=== PATIENT | male | born 1965 | race Caucasian/White ===

== ENCOUNTER 2022-09-14 22:04 | Inpatient (IN) | payer MEDICARE, MEDICAID, SELFPAY ==
[2022-09-14 22:11] VITALS: BP 108/75; PULSE 93; RESP 16; TEMP 36.7; O2SAT 100; BMI 26.3
--- NOTE | 2022-09-14 22:57 | CT_ITS ---
The [address] [address] Patient Name: AMPARO KHAN MRN: [id number] date: 1965 Sex: M Assigned Patient Location: ER Current Patient Location: Accession/Order Number: [id number] Exam Date: 09/14/2022 23:20 Report Date: 09/14/2022 23:59 At the request of: KARTHIK CARMEN Procedure: CT lumbar spine wo con EXAM: CT lumbar spine wo con HISTORY: The patient is a 57-year-old male, fall COMPARISON: None. TECHNIQUE: CT images were obtained through the lumbar spine without intravenous contrast and reformatted in 2 dimensions. Dose reduction techniques were achieved by using automated exposure control and/or adjustment of mA and/or kV according to patient size and/or use of iterative reconstruction technique. FINDINGS: The axial images demonstrate no fractures or cortical discontinuities throughout the lumbar spine. The sacroiliac joints are maintained. The coronal and sagittal reformatted images demonstrate no fractures or loss of vertebral body height throughout the lumbar spine. There is no malalignment. There is a chronic appearing Schmorl's node within the superior endplate of T12 and a smaller Schmorl's node within the superior endplate of L1. There is moderate narrowing of the L3-L4 and L4-L5 discs. The soft tissue images demonstrate evidence of a disc herniation at the L3-L4 level. If clinically necessary, the degree of central canal stenosis and neural foraminal narrowing could be better evaluated with an MRI of the lumbar spine. CT/CT lumbar spine wo con IMPRESSION: 1. No fractures or loss of vertebral body height throughout the lumbar spine. 2. Disc herniation at the L3-L4 level. Electronically authenticated by: JEMAL RUIZ Date: 09/14/2022 23:59
[2022-09-14 22:58] LABS: Basophils Percent Auto 0.2 % (0.2-2.0); Hemoglobin 12.8 g/dL (14.0-18.0); Immature Granulocytes Abs Auto 0.02 10^3/uL (0.00-0.03); Immature Granulocytes Pct Auto 0.4 % (0.0-0.5); Lymphocytes Absolute Auto 0.7 10^3/uL (1.2-3.8); Lymphocytes Percent Auto 12.8 % (20.5-60.0); Mean Corpuscular HGB Conc 35.6 g/dL (29.9-35.2); Mean Corpuscular Hemoglobin 35.4 pg (25.9-34.0); Mean Corpuscular Volume 99.4 fL (80.0-94.0); Mean Platelet Volume 9.6 fL (9.5-13.5); Monocytes Absolute Auto 0.6 10^3/uL (0.3-0.8); Neutrophils Absolute Auto 4.3 10^3/uL (1.4-6.5); Neutrophils Percent Auto 75.6 % (43.0-75.0); Platelet Count 79 10^3/uL (150-450); Red Blood Count 3.62 10^6/uL (4.70-6.10); Red Cell Distribution Width 12.5 % (11.0-15.0); White Blood Count 5.6 10^3/uL (4.0-11.0)
[2022-09-14 23:07] LABS: Alanine Aminotransferase 35 U/L (16-63); Albumin Globulin Ratio 0.7; Albumin Level 3.4 g/dL (3.4-5.0); Alkaline Phosphatase 115 U/L (46-116); Anion Gap 25.5; Aspartate Amino Transferase 58 U/L (15-37); BUN Creatinine Ratio 11.8; Bilirubin Total 0.9 mg/dL (0.2-1.0); Calcium 8.7 mg/dL (8.5-10.1); Carbon Dioxide 17.8 mmol/L (21.0-32.0); Chloride 92 mmol/L (98-107); Estimated GFR (African America >60 (>=60); Estimated GFR (Non-African Ame >60 (>=60); Ethanol 175 mg/dL; Globulin 4.9 g/dL; Glucose 297 mg/dL (74-106); Magnesium 1.2 mg/dL (1.8-2.4); Potassium 3.3 mmol/L (3.5-5.1); Sodium 132 mmol/L (136-145); Total Protein 8.3 g/dL (6.4-8.2)
[2022-09-14 23:18] LABS: Phosphorus 2.9 mg/dL (2.6-4.7)
[2022-09-15] VITALS (13 sets, daily range): BP systolic 114–162; BP diastolic 70–94; PULSE 76–104; RESP 16–18; TEMP 36.4–38.7; O2SAT 83–98; BMI 37.9
--- NOTE | 2022-09-15 | XR_ITS ---
[address] [address] Patient Name: AMPARO KHAN MRN: [id number] date: 1965 Sex: M Assigned Patient Location: ER Current Patient Location: ER Accession/Order Number: [id number] Exam Date: 09/15/2022 08:20 Report Date: 09/15/2022 09:00 At the request of: KARTHIK CARMEN Procedure: XR foreign body eye EXAMINATION: XR foreign body eye HISTORY: HISTORY OF METAL GRINDING COMPARISON: No relevant comparison available. FINDINGS: ORBITS: Negative for a metallic foreign body. OTHER: Negative. XR/XR foreign body eye IMPRESSION: No metallic foreign body in the orbits Electronically authenticated by: ALETHA CLEMENT Date: 09/15/2022 09:00
[2022-09-15] MEDS: POTASSIUM CHLORIDE 10 MEQ ER TABLET 20 MEQ PO (00:07)
[2022-09-15] MEDS: 0.9 % SODIUM CHLORIDE 1,000 ML 1000 ML IV ×2 (00:08→11:40)
--- NOTE | 2022-09-15 00:58 | ED_ITS ---
HPI - General Adult General Chief complaint: Weakness Stated complaint: GENERALIZED WEAKNESS Time Seen by Provider: 09/14/22 22:51 Source: patient Mode of arrival: ambulance History of Present Illness HPI narrative: The patient is coming to us with generalized weakness when referring to his symptoms he mentioned that the weakness has been there for few weeks at least, he usually goes to [facility] but today he decided to come over here because people here are not to him, the patient mentioned that he had multiple work-up for his weakness but they usually do not do anything for it He also mentioned that he has been incontinence of urine for the last few weeks at least and usually wears depends. He mentioned that his at least a few weeks it could have been more than that according to him The patient have history of drinking and he was brought to us after the EMS found him drinking alcohol with a bottle of alcohol beside him The patient usually walks with his walker and according to him although he does have weakness this is not a new complaint he had told his primary care doctor multiple times he also presented to the ER in [place] multiple times for the same reason Related Data Allergies Allergy/AdvReac Type Severity Reaction Status Date / Time No Known Drug Allergies Allergy Verified 09/14/22 22:11 Review of Systems ROS Narrative Nurses notes and vital signs reviewed and patient is not hypoxic. General: Well-appearing and in no apparent distress. Skin: Warm, dry, no pallor noted. No rash. Head: Normocephalic, atraumatic. Neck: Supple, non-tender. Eye: Pupils are equal, round and EOMI. No scleral icterus. Ears, Nose, Mouth, and Throat: TM are clear, no nasal mucosal hypertrophy. Oral mucosa is moist, no posterior oropharynx erythema, uvula is mid-line Cardiovascular: Regular Rate and Rhythm without murmur, gallop or rub. Respiratory: No accessory muscle use or respiratory distress. Lungs are clear to auscultation, no wheezing, rales or rhonchi Chest Wall: no tenderness Back: No midline thoracic or lumbar vertebral tenderness. No CVA tenderness Musculoskeletal: normal ROM, no calf or popliteal tenderness, no lower extremity edema/swelling GI: Abdomen is soft, non-distended. Normal bowel sounds. No masses appreciated. No tenderness to palpation. No rebound, guarding, or rigidity noted. Neurological: A&O x4. No cranial nerve dysfunction observed. Moves all extremities. Sensation intact. Psychiatric: Cooperative and interactive. Normal mood and affect. Exam Constitutional Vital Signs, click to edit/add: Last Vital Signs Temp 98.0 F 09/14/22 22:11 Pulse 85 09/15/22 06:12 Resp 18 09/15/22 02:17 BP 117/83 H 09/15/22 06:12 Pulse Ox 94 L 09/15/22 06:12 O2 Del Method Room Air 09/14/22 22:11 Course Vital Signs Vital signs: Vital Signs Temperature 98.0 F 09/14/22 22:11 Pulse Rate 93 H 09/14/22 22:11 Respiratory Rate 16 09/14/22 22:11 Blood Pressure 108/75 09/14/22 22:11 Pulse Oximetry 100 09/14/22 22:11 Oxygen Delivery Method Room Air 09/14/22 22:11 Temperature 98.0 F 09/14/22 22:11 Pulse Rate 85 09/15/22 06:12 Respiratory Rate 18 09/15/22 02:17 Blood Pressure 117/83 H 09/15/22 06:12 Pulse Oximetry 94 L 09/15/22 06:12 Oxygen Delivery Method Room Air 09/14/22 22:11 Medical Decision Making MDM Narrative Medical decision making narrative: The patient examination was basically benign except for him complaining that he fell down yesterday and has been having chronic pain in his back. The patient mentioned that he was weak and that is why he fell down, pt was found to have a bottle of alcohol beside him when the EMS arrived to get him The patient alcohol level was elevated his potassium was low as well as magnesium his blood work-up shows metabolic acidosis which is mostly secondary to the elevated alcohol level The patient was hydrated in the ER with p.o. as well as IV fluid and he also was treated with magnesium and p.o. 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 The patient was offered to be transferred to another facility for neurological evaluation but requested to go home, he did mention that his symptoms are not new and they have been there for few weeks I did explain to the patient as well that he have urine retension as his bladder scan showed more than 700 cc of urine,but the pt mentioned he will just and he just actually urinated in his depends pt symptoms all been chronic and he initialy refused the transfer for MRI lumbar when he was awaiting to be more sober, he still was showing generalised weakness , the patient lives by himself he has not been able to manage to take care of himself as well although he have been ambulating with a walker but right now the plan is to get an MRI to rule out any lumbar spine pathology that could be causing the patient's symptoms The patient case was discussed with Dr. Muniz , and the will await the results of the MRI before any decision about admission pt care transferred to Dr Jules Lab Data Labs: Lab Results 09/14/22 Range/Units 22:35 WBC 5.6 (4.0-11.0) 10^3/uL RBC 3.62 L (4.70-6.10) 10^6/uL Hgb 12.8 L (14.0-18.0) g/dL Hct 36.0 L (42.0-54.0) % MCV 99.4 H (80.0-94.0) fL MCH 35.4 H (25.9-34.0) pg MCHC 35.6 H (29.9-35.2) g/dL RDW 12.5 (11.0-15.0) % Plt Count 79 L (150-450) 10^3/uL MPV 9.6 (9.5-13.5) fL Neut % (Auto) 75.6 H (43.0-75.0) % Lymph % (Auto) 12.8 L (20.5-60.0) % Iron % (Auto) 11.0 (1.7-12.0) % Eos % (Auto) 0.0 L (0.9-7.0) % Baso % (Auto) 0.2 (0.2-2.0) % Neut # (Auto) 4.3 (1.4-6.5) 10^3/uL Lymph # (Auto) 0.7 L (1.2-3.8) 10^3/uL Iron # (Auto) 0.6 (0.3-0.8) 10^3/uL Eos # (Auto) 0.0 (0.0-0.7) 10^3/uL Baso # (Auto) 0.0 (0.0-0.1) 10^3/uL Abs Immat Gran (auto) 0.02 (0.00-0.03) 10^3/uL Imm/Tot Granulo (auto) 0.4 (0.0-0.5) % Sodium 132 L (136-145) mmol/L Potassium 3.3 L (3.5-5.1) mmol/L Chloride 92 L (98-107) mmol/L Carbon Dioxide 17.8 L (21.0-32.0) mmol/L Anion Gap 25.5 BUN 14.0 (7.0-18.0) mg/dL Creatinine 1.19 (0.70-1.30) mg/dL Est GFR ( Amer) >60 (>=60) Est GFR (Non-Af Amer) >60 (>=60) BUN/Creatinine Ratio 11.8 Glucose 297 H (74-106) mg/dL Calcium 8.7 (8.5-10.1) mg/dL Phosphorus 2.9 (2.6-4.7) mg/dL Magnesium 1.2 L (1.8-2.4) mg/dL Total Bilirubin 0.9 (0.2-1.0) mg/dL AST 58 H (15-37) U/L ALT 35 (16-63) U/L Alkaline Phosphatase 115 (46-116) U/L Total Protein 8.3 H (6.4-8.2) g/dL Albumin 3.4 (3.4-5.0) g/dL Globulin 4.9 g/dL Albumin/Globulin Ratio 0.7 Ethanol Quant 175 mg/dL Discharge Plan Discharge Chief Complaint: Weakness Clinical Impression: Alcohol abuse, Acute hypokalemia, Hypomagnesemia Patient Disposition: Home, Self-Care Time of Disposition Decision: 05:20 Condition: Good Instructions: Hypokalemia (ED), Abuse of Alcohol (ED), Hypomagnesemia (ED) Stand Alone Forms: Portal Instructions Referrals: Physician,Non-Staff, MD [Primary Care Provider] - 1 week
[2022-09-15] MEDS: KETOROLAC TROMETHAMINE 30 MG/ML VIAL 15 MG IVP (05:45)
--- NOTE | 2022-09-15 06:01 | MR_ITS ---
The [address] [address] Patient Name: AMPARO KHAN MRN: [id number] date: 1965 Sex: M Assigned Patient Location: ER Current Patient Location: ER Accession/Order Number: [id number] Exam Date: 09/15/2022 08:36 Report Date: 09/15/2022 10:43 At the request of: KARTHIK CARMEN Procedure: MR lumbar spine wo con EXAMINATION: MR lumbar spine wo con HISTORY: back pain and weakness COMPARISON: No relevant comparison available. TECHNIQUE: A variety of imaging planes and parameters were utilized for visualization of suspected pathology. FINDINGS: For the purposes of numbering, sagittal T2 image # 7 extends from the T11 vertebral body superiorly to the S2-S3 level inferiorly. PARASPINAL AREA: Normal with no visible mass. BONES: Normal alignment with no acute fracture or spondylolisthesis. Mild heterogeneous signal likely age-related change. Moderate anterior degenerative spondylosis. Mild facet osteoarthropathy. CORD/CAUDA EQUINA: Normal caliber, contour, and signal intensity. DISC LEVELS: 12-L1: No significant disc/facet abnormality, spinal stenosis, or foraminal stenosis. L1-L2: No significant disc/facet abnormality, spinal stenosis, or foraminal stenosis. L2-L3: No significant disc/facet abnormality, spinal stenosis, or foraminal stenosis. L3-L4: Mild posterior disc protrusion. No central or foraminal stenosis L4-L5: Mild posterior disc/osteophyte complex. No central or foraminal stenosis L5-S1: Early degenerative disc disease is present without focal protrusion or neural impingement. MR/MR lumbar spine wo con IMPRESSION: Mild degenerative discogenic changes No central or foraminal stenosis Electronically authenticated by: ALETHA CLEMENT Date: 09/15/2022 10:43
[2022-09-15 08:07] LABS: Hematocrit 30.7 % (42.0-54.0); Hemoglobin 11.2 g/dL (14.0-18.0); Immature Granulocytes Abs Auto 0.02 10^3/uL (0.00-0.03); Immature Granulocytes Pct Auto 0.5 % (0.0-0.5); Lymphocytes Absolute Auto 0.5 10^3/uL (1.2-3.8); Lymphocytes Percent Auto 11.8 % (20.5-60.0); Mean Corpuscular HGB Conc 36.5 g/dL (29.9-35.2); Mean Corpuscular Hemoglobin 35.4 pg (25.9-34.0); Mean Corpuscular Volume 97.2 fL (80.0-94.0); Mean Platelet Volume 9.7 fL (9.5-13.5); Monocytes Absolute Auto 0.6 10^3/uL (0.3-0.8); Monocytes Percent Auto 15.6 % (1.7-12.0); Neutrophils Absolute Auto 2.9 10^3/uL (1.4-6.5); Neutrophils Percent Auto 72.1 % (43.0-75.0); Platelet Count 58 10^3/uL (150-450); Red Blood Count 3.16 10^6/uL (4.70-6.10); Red Cell Distribution Width 12.3 % (11.0-15.0)
[2022-09-15 08:18] LABS: Alanine Aminotransferase 29 U/L (16-63); Albumin Globulin Ratio 0.6; Albumin Level 2.9 g/dL (3.4-5.0); Alkaline Phosphatase 101 U/L (46-116); Anion Gap 26.3; Aspartate Amino Transferase 49 U/L (15-37); BUN Creatinine Ratio 12.8; Bilirubin Total 1.3 mg/dL (0.2-1.0); Calcium 8.1 mg/dL (8.5-10.1); Carbon Dioxide 14.4 mmol/L (21.0-32.0); Chloride 91 mmol/L (98-107); Estimated GFR (African America >60 (>=60); Estimated GFR (Non-African Ame >60 (>=60); Ethanol <3 mg/dL; Globulin 4.6 g/dL; Glucose 308 mg/dL (74-106); Potassium 3.7 mmol/L (3.5-5.1); Sodium 128 mmol/L (136-145); Total Protein 7.5 g/dL (6.4-8.2)
[2022-09-15] MEDS: MULTIVITAMIN TABLET 400 TAB PO (13:40)
[2022-09-15] MEDS: LORAZEPAM 1 MG TABLET PO ×2 (13:40→21:48)
[2022-09-15] MEDS: THIAMINE MONONITRATE (VIT B1) 100 MG TABLET PO (13:40)
[2022-09-15] MEDS: FOLIC ACID 1 MG TABLET PO (13:40)
[2022-09-15] MEDS: 0.9 % SODIUM CHLORIDE 1,000 ML 100 ML IV ×2 (13:40→22:48)
[2022-09-15] MEDS: ENOXAPARIN SODIUM 40 MG/0.4 ML SYRINGE SUBQ (14:42)
--- NOTE | 2022-09-15 15:14 | US_ITS ---
The [address] [address] Patient Name: AMPARO KHAN MRN: [id number] date: 1965 Sex: M Assigned Patient Location: MS Current Patient Location: MS Accession/Order Number: [id number] Exam Date: 09/15/2022 15:20 Report Date: 09/15/2022 17:01 At the request of: BARRY DIXON Procedure: US right upper quadrant EXAM: US right upper quadrant HISTORY: elevated lft's, alcoholic COMPARISON: None. TECHNIQUE: Limited ultrasound of the liver, utilizing grayscale and color Doppler imaging. FINDINGS: Right pleural space: Clear Liver: Diffusely increased echogenicity of the liver. Hepatomegaly, measuring 22 cm. Normal contour. Gallbladder: Not visualized. Intrahepatic ducts: Normal caliber. Extra hepatic duct measures up to 0.5 cm Peritoneal space: No ascites. Pancreas: Unremarkable. Distal pancreas cannot be evaluated due to overlying bowel gas. Right kidney: Normal cortical echogenicity. No hydronephrosis. The right kidney measures 12.9 cm in length. US/US right upper quadrant IMPRESSION: Hepatomegaly and hepatic steatosis. No biliary ductal dilatation. Gallbladder is not visualized. Electronically authenticated by: JOSE LUIS SANTORO Date: 09/15/2022 17:01
[2022-09-15] MEDS: ACETAMINOPHEN 325 MG TABLET PO (15:22)
[2022-09-15] MEDS: PANTOPRAZOLE SODIUM 40 MG VIAL IV (15:22)
[2022-09-15 15:54] LABS: Glucometer 355 mg/dL (74-106)
[2022-09-15 16:00] LABS: Adenovirus NOT DETECTED (NOT DETECTE); Bordetella parapertussis NOT DETECTED (NOT DETECTE); Coronavirus 229E NOT DETECTED (NOT DETECTE); Coronavirus HKU1 NOT DETECTED (NOT DETECTE); Coronavirus NL63 NOT DETECTED (NOT DETECTE); Coronavirus OC43 NOT DETECTED (NOT DETECTE); Human Metapneumovirus NOT DETECTED (NOT DETECTE); Human Rhinovirus/Enterovirus NOT DETECTED (NOT DETECTE); Influenza A NOT DETECTED (NOT DETECTE); Influenza B NOT DETECTED (NOT DETECTE); Mycoplasma pneumoniae NOT DETECTED (NOT DETECTE); Parainfluenza Virus 1 NOT DETECTED (NOT DETECTE); Parainfluenza Virus 2 NOT DETECTED (NOT DETECTE); Parainfluenza Virus 3 NOT DETECTED (NOT DETECTE); Parainfluenza Virus 4 NOT DETECTED (NOT DETECTE); Respiratory Syncytial Virus NOT DETECTED (NOT DETECTE); SARS-CoV-2 NOT DETECTED (NOT DETECTE)
[2022-09-15] MEDS: INSULIN ASPART 300 UNIT/3 ML PEN SUBQ ×2 (16:01→21:48)
[2022-09-15 16:23] LABS: Lactate/Lactic Acid 1.3 mmol/L (0.4-2.0)
--- NOTE | 2022-09-15 17:35 | P.HP_ITS ---
H&P: HPI History of Present Illness Chief complaint: GENERALIZED WEAKNESS Narrative: patient is a 57-year-old male with past medical history of alcoholism he drinks approximately 1 gallon of whiskey every 2-3 days. He presented to the Emergency Room after calling EMS because he had general weakness and his bilateral lower extremities and inhibited him to walk. Original workup was a CT of the back which then proceeded to an MRI of the back which showed some degenerative changes and some disc disease but no cauda equina or any surgical emergency. Patient has tried to stop drinking before and has had seizure withdrawals before. He does not anticipate or want to quit alcohol at this time but he is very weak so he is forced to be in the hospital. He does live at home alone and otherwise is able to continue on with his quality of life. Today he developed a fever and sepsis current protocol was initiated including viral cultures, lactate, urine and blood cultures. Patient was admitted because of the weakness for PTOT evaluation and we will do scheduled Ativan as well as withdrawal precautions Review of Systems ROS Narrative ROS: a complete review of systems were reviewed with patient and are positive as below or listed in History of Chief Complaint. General: no fever, chills, night sweats Head: no headache, trauma, visual changes, nausea or vomiting Skin: no reported rashes, itching or sores Eyes: no blurriness of vision Ears: no reported hearing loss, vertigo, earache, or tinnitus Throat: no sore throat, hoarseness, swelling of neck, or tongue pain Heart: no chest pain Lungs: no shortness of breath or cough GI: no diarrhea or vomiting/nausea Urinary: no urinary urgency, frequency or pain Neuro: no numbness or tingling but weakness in legs with back pain HEM: no bleeding issues or bruising ENDO: no thyroid problems Psych: no anxiety or depression PFSH PFS Medical History Social History Within the past year, how often did you have a drink containing alcohol: 4 or more times a week Within the past year, how many standard drinks containing alcohol did you have on a typical day: 10 or more Within the past year, how often did you have six or more drinks on one occasion: daily or almost daily Total score: 12 Score interpretation: A score of 4 or more indicates drinking is likely to affect patient's safety. Smoking status: Heavy tobacco smoker Non-prescribed substance use: denies use Highest level of school completed/degree received: high school graduate Little interest or pleasure in doing things: more than half the days Feeling down, depressed, or hopeless: not at all Feel stressed/tense/nervous/anxious/difficulty sleeping: only a little Meds Home Medications and Allergies Home Medications Medication Instructions Recorded Confirmed Type ibuprofen 800 mg tablet (IBU) 800 mg PO Q6H 09/15/22 09/15/22 History insulin glargine subcut 09/15/22 History insulin lispro protamin-lispro subcut 09/15/22 History levothyroxine 150 mcg tablet 150 mcg PO DAILY 09/15/22 09/15/22 History (Euthyrox) metformin 500 mg tablet 500 mg PO BID 09/15/22 09/15/22 History pantoprazole 40 mg tablet,delayed 40 mg PO DAILY 09/15/22 09/15/22 History release pregabalin 150 mg capsule (Lyrica) 150 mg PO BID 09/15/22 09/15/22 History ropinirole 3 mg tablet 3 mg PO TID 09/15/22 09/15/22 History spironolactone 25 mg tablet 25 mg PO DAILY 09/15/22 09/15/22 History Allergies Allergy/AdvReac Type Severity Reaction Status Date / Time No Known Drug Allergies Allergy Verified 09/14/22 22:11 Exam Narrative Exam Narrative: General: Patient is alert, and oriented to person, place and time with normal affect, proper hygiene Skin: no visible rashes, or ulcers Head: atraumatic, acephalic Eyes: PERRLA, no nystagmus present, conjunctiva clear, no scleral icterus Neck: no masses palpated, normal thyroid, no JVD or audible carotid bruits Heart: Normal rate and rhythm, no murmurs/rubs/gallops Lungs: no audible wheezes, crackles and normal breath sounds all lung galindo Abdomen: Normal audible bowel sounds, no distension, enlarged liver Musculoskeletal: no swelling bilateral lower extremities, weakness noted 4/5 in bilateral lower ext Vascular: Normal carotid, radial, femoral, posterior tibial, and dorsalis pedis pulses Lymph: no supraclavicular, axillary, or anterior/posterior cervical adenopathy Neuro: CN II-X grossly intact, normal sensation upper and lower extremities Constitutional Vital Signs, click to edit/add: Last Vital Signs Temp 98.4 F 09/15/22 17:01 Pulse 94 H 09/15/22 17:01 Resp 16 09/15/22 17:01 BP 162/94 H 09/15/22 12:12 Pulse Ox 96 09/15/22 15:15 O2 Del Method Room Air 09/15/22 15:15 Results Labs Labs: Short CBC 09/14/22 09/15/22 Range/Units 22:35 07:55 WBC 5.6 4.0 (4.0-11.0) 10^3/uL Hgb 12.8 L 11.2 L (14.0-18.0) g/dL Hct 36.0 L 30.7 L (42.0-54.0) % Plt Count 79 L 58 L (150-450) 10^3/uL BMP 09/14/22 09/15/22 22:35 07:55 Sodium 132 L 128 L Potassium 3.3 L 3.7 Chloride 92 L 91 L Carbon Dioxide 17.8 L 14.4 L BUN 14.0 14.0 Creatinine 1.19 1.09 Glucose 297 H 308 H Calcium 8.7 8.1 L Liver Function 09/14/22 09/15/22 Range/Units 22:35 07:55 Total Bilirubin 0.9 1.3 H (0.2-1.0) mg/dL AST 58 H 49 H (15-37) U/L ALT 35 29 (16-63) U/L Alkaline Phosphatase 115 101 (46-116) U/L Albumin 3.4 2.9 L (3.4-5.0) g/dL Assessment and Plan Assessment and Plan (1) Acute hypokalemia: Assessment and Plan: will replace potassium by mouth and IV (2) Hypomagnesemia: Assessment and Plan: to replace magnesium (3) Alcohol abuse: Assessment and Plan: no desire to quit but will replace on withdrawal scores and scheduled Ativan for seizure precautions, thiamine folic acid (4) Generalized weakness: Assessment and Plan: could be related to the degenerative joint disease and disc disease of his back could also be a vitamin deficiency PT OT evaluation continue to replace electrolytes. (5) Elevated LFTs: Assessment and Plan: acute hepatitis panel and liver ultrasound will be obtained Plan patient is a full code Lovenox for deep vein thrombosis prophylaxis Patient is admitted to inpatient status is expected to stay more than two m idnights
[2022-09-15] MEDS: METHYLPREDNISOLONE SOD SUCC PF 125 MG/2 ML VIAL IVP (18:49)
[2022-09-15] MEDS: CEFTRIAXONE 1,000 MG in 0.9 % SODIUM CHLORIDE 50 ML 100 MG IV (18:49)
[2022-09-15 20:47] LABS: Glucometer 316 mg/dL (74-106)
[2022-09-15 23:58] LABS: Glucometer 362 mg/dL (74-106)
[2022-09-16] VITALS (19 sets, daily range): BP systolic 131–138; BP diastolic 81–86; PULSE 71–86; RESP 16–20; TEMP 36.3–36.6; O2SAT 95–98
[2022-09-16] MEDS: KETOROLAC TROMETHAMINE 30 MG/ML VIAL IVP ×2 (00:08→19:33)
[2022-09-16] MEDS: LORAZEPAM 1 MG TABLET PO ×6 (01:09→21:12)
[2022-09-16 04:54] LABS: A. calcoaceticus-baumannii Cpx NOT DETECTED (NOT DETECTE); Bacteroides fragilis NOT DETECTED (NOT DETECTE); Candida albicans NOT DETECTED (NOT DETECTE); Candida auris NOT DETECTED (NOT DETECTE); Candida glabrata NOT DETECTED (NOT DETECTE); Candida krusei NOT DETECTED (NOT DETECTE); Candida parapsilosis NOT DETECTED (NOT DETECTE); Candida tropicalis NOT DETECTED (NOT DETECTE); Cryptococcus neoformans/gattii NOT DETECTED (NOT DETECTE); Enterobacter cloacae complex NOT DETECTED (NOT DETECTE); Enterococcus faecalis NOT DETECTED (NOT DETECTE); Enterococcus faecium NOT DETECTED (NOT DETECTE); Haemophilus influenzae NOT DETECTED (NOT DETECTE); Klebsiella aerogenes NOT DETECTED (NOT DETECTE); Listeria monocytogenes NOT DETECTED (NOT DETECTE); Neisseria meningitidis NOT DETECTED (NOT DETECTE); Proteus spp. NOT DETECTED (NOT DETECTE); Pseudomonas aeruginosa NOT DETECTED (NOT DETECTE); Salmonella spp. NOT DETECTED (NOT DETECTE); Serratia marcescens NOT DETECTED (NOT DETECTE); Staphylococcus epidermidis NOT DETECTED (NOT DETECTE); Staphylococcus lugdunensis NOT DETECTED (NOT DETECTE); Staphylococcus spp. NOT DETECTED (NOT DETECTE); Stenotrophomonas maltophilia NOT DETECTED (NOT DETECTE); Streptococcus agalactiae NOT DETECTED (NOT DETECTE); Streptococcus pneumoniae NOT DETECTED (NOT DETECTE); Streptococcus pyogenes NOT DETECTED (NOT DETECTE); Streptococcus spp. NOT DETECTED (NOT DETECTE)
[2022-09-16 06:03] LABS: Enterobacterales DETECTED (NOT DETECTE); Klebsiella pneumoniae group DETECTED (NOT DETECTE)
[2022-09-16 06:11] LABS: Hemoglobin 11.2 g/dL (14.0-18.0); Immature Granulocytes Abs Auto 0.01 10^3/uL (0.00-0.03); Immature Granulocytes Pct Auto 0.3 % (0.0-0.5); Lymphocytes Absolute Auto 0.4 10^3/uL (1.2-3.8); Lymphocytes Percent Auto 10.5 % (20.5-60.0); Mean Platelet Volume 10.2 fL (9.5-13.5); Monocytes Absolute Auto 0.2 10^3/uL (0.3-0.8); Neutrophils Absolute Auto 2.8 10^3/uL (1.4-6.5); Neutrophils Percent Auto 83.2 % (43.0-75.0); Platelet Count 57 10^3/uL (150-450); Red Cell Distribution Width 12.4 % (11.0-15.0); White Blood Count 3.3 10^3/uL (4.0-11.0)
[2022-09-16] MEDS: METHYLPREDNISOLONE SOD SUCC PF 125 MG/2 ML VIAL IVP ×2 (06:24→17:29)
[2022-09-16 06:28] LABS: Estimated Average Glucose 212 mg/dL
[2022-09-16 06:41] LABS: Alanine Aminotransferase 38 U/L (16-63); Albumin Globulin Ratio 0.6; Albumin Level 2.9 g/dL (3.4-5.0); Alkaline Phosphatase 96 U/L (46-116); Anion Gap 25.6; Aspartate Amino Transferase 80 U/L (15-37); Bilirubin Total 0.8 mg/dL (0.2-1.0); Calcium 8.4 mg/dL (8.5-10.1); Chloride 96 mmol/L (98-107); Chol HDL Ratio 4.6; Cholesterol 174 mg/dL (<=200); Estimated GFR (African America >60 (>=60); Estimated GFR (Non-African Ame >60 (>=60); Globulin 4.7 g/dL; Glucose 319 mg/dL (74-106); HDL Cholesterol 38 mg/dL (40-60); Magnesium 1.8 mg/dL (1.8-2.4); Potassium 3.6 mmol/L (3.5-5.1); Sodium 131 mmol/L (136-145); Thyroid Stimulating Hormone 1.346 uIU/mL (0.358-3.740); Total Protein 7.6 g/dL (6.4-8.2); Triglycerides 122 mg/dL (<=150); VLDL CHOLESTEROL 24.4 mg/dL
[2022-09-16] MEDS: LINEZOLID IN DEXTROSE 5% 600 MG/300 ML PIGGYBACK 300 MG IV (08:59)
[2022-09-16] MEDS: INSULIN ASPART 300 UNIT/3 ML PEN SUBQ ×4 (08:59→21:09)
[2022-09-16] MEDS: 0.9 % SODIUM CHLORIDE 1,000 ML 100 ML IV ×2 (09:07→22:00)
--- NOTE | 2022-09-16 09:32 | PM.PN ---
Progress Note: Subjective Subjective Interval history: patient is a 57-year-old male with past medical history of alcoholism he drinks approximately 1 gallon of whiskey every 2-3 days. He presented to the Emergency Room after calling EMS because he had general weakness and his bilateral lower extremities and inhibited him to walk. Original workup was a CT of the back which then proceeded to an MRI of the back which showed some degenerative changes and some disc disease but no cauda equina or any surgical emergency. Patient has tried to stop drinking before and has had seizure withdrawals before. He does not anticipate or want to quit alcohol at this time but he is very weak so he is forced to be in the hospital. He does live at home alone and otherwise is able to continue on with his quality of life. Today he developed a fever and sepsis current protocol was initiated including viral cultures, lactate, urine and blood cultures. Patient was admitted because of the weakness for PTOT evaluation and we will do scheduled Ativan as well as withdrawal precautions. patient feels slight improvement this morning. No new complaints. Exam Narrative Exam Narrative: General: Patient is alert, and oriented to person, place and time with normal affect, proper hygiene Skin: no visible rashes, or ulcers Head: atraumatic, acephalic Eyes: PERRLA, no nystagmus present, conjunctiva clear, no scleral icterus Neck: no masses palpated, normal thyroid, no JVD or audible carotid bruits Heart: Normal rate and rhythm, no murmurs/rubs/gallops Lungs: no audible wheezes, crackles and normal breath sounds all lung galindo Abdomen: Normal audible bowel sounds, no distension, enlarged liver Musculoskeletal: no swelling bilateral lower extremities, weakness noted 4/5 in bilateral lower ext Vascular: Normal carotid, radial, femoral, posterior tibial, and dorsalis pedis pulses Lymph: no supraclavicular, axillary, or anterior/posterior cervical adenopathy Neuro: CN II-X grossly intact, normal sensation upper and lower extremities Constitutional Vital Signs, click to edit/add: Last Vital Signs Temp 97.8 F 09/16/22 04:20 Pulse 77 09/16/22 07:45 Resp 18 09/16/22 04:20 BP 138/83 H 09/16/22 04:20 Pulse Ox 98 09/16/22 04:20 O2 Del Method Room Air 09/16/22 04:20 Progress Note: Objective Labs Labs: Short CBC 09/16/22 Range/Units 05:30 WBC 3.3 L (4.0-11.0) 10^3/uL Hgb 11.2 L (14.0-18.0) g/dL Hct 32.0 L (42.0-54.0) % Plt Count 57 L (150-450) 10^3/uL BMP 09/16/22 05:30 Sodium 131 L Potassium 3.6 Chloride 96 L Carbon Dioxide 13.0 L BUN 13.0 Creatinine 1.00 Glucose 319 H Calcium 8.4 L Liver Function 09/16/22 Range/Units 05:30 Total Bilirubin 0.8 (0.2-1.0) mg/dL AST 80 H (15-37) U/L ALT 38 (16-63) U/L Alkaline Phosphatase 96 (46-116) U/L Albumin 2.9 L (3.4-5.0) g/dL Progress Note: A&P Assessment and Plan (1) UTI (urinary tract infection): Assessment and Plan: fever, elevated white count, started on rocephin but levaquin added today due to positive blood culture for K. Pneumonia and enterobacter. continue to monitor cbc (2) Sepsis: Assessment and Plan: Viral cultures negative but positive blood culture. fever resolved. sepsis resolved. (3) Acute hypokalemia: Assessment and Plan: will replace potassium by mouth and IV (4) Hypomagnesemia: Assessment and Plan: to replace magnesium (5) Alcohol abuse: Assessment and Plan: no desire to quit but will replace on withdrawal scores and scheduled Ativan for seizure precautions, thiamine folic acid (6) Generalized weakness: Assessment and Plan: could be related to the degenerative joint disease and disc disease of his back could also be a vitamin deficiency PT OT evaluation continue to replace electrolytes or infection related (7) Elevated LFTs: Assessment and Plan: cute hepatitis panel and liver ultrasound will be obtained Plan patient is a full code Lovenox for deep vein thrombosis prophylaxis Patient is admitted to inpatient status is expected to stay more than two midnights with worsening condition
--- NOTE | 2022-09-16 11:07 | REH.PTDLY ---
Physical Therapy Daily Note PT Daily Note/Assess Start: 09/16/22 11:06 Freq: Status: Active Protocol: Document 09/16/22 11:06 KAYLEE (Rec: 09/16/22 11:07 KAYLEE Desktop) Visit Not Completed Visit Not Completed Due to: Pt refusing Other Reason Visit Not Completed Pt states he has been up all morning and just got back to bed, back is hurting. Nursing confirmed. Pt declines rx today. Physical Therapy Daily Note/Assessment Time In 11:05 Time Out 11:06
[2022-09-16] MEDS: SPIRONOLACTONE 25 MG TABLET PO (11:12)
[2022-09-16] MEDS: PREGABALIN 75 MG CAPSULE 150 MG PO ×2 (11:12→21:12)
[2022-09-16] MEDS: LEVOFLOXACIN IN DEXTROSE 5 % 500 MG/100 ML PIGGYBACK 100 MG IV (11:12)
[2022-09-16 11:21] LABS: Glucometer 490 mg/dL (74-106)
[2022-09-16 12:09] LABS: CTX-M NOT DETECTED (NOT DETECTE)
[2022-09-16 12:10] LABS: IMP NOT DETECTED (NOT DETECTE); KPC NOT DETECTED (NOT DETECTE); NDM NOT DETECTED (NOT DETECTE); OXA-48-like NOT DETECTED (NOT DETECTE); mcr-1 NOT DETECTED (NOT DETECTE)
[2022-09-16 12:11] LABS: VIM NOT DETECTED (NOT DETECTE)
--- NOTE | 2022-09-16 12:22 | SWNOTE1 ---
RAYMOND met with pt to discuss dc needs. Pt does live at home alone, his aunt helps as needed. SW did talk with pt about going to rehab. He stated he has been to [facility] and [facility] in [place]. He did not like either. He stated he worked with therapy today and he was not steady on his feet. He does agree he needs rehab. Pt's aunt will be in shortly. RAYMOND gave pt medicare.gov star ratings list for him to review, SW to check back today to see where he wants. Earliest discharge 09/19/22.
[2022-09-16] MEDS: THIAMINE MONONITRATE (VIT B1) 100 MG TABLET PO (12:53)
[2022-09-16] MEDS: ENOXAPARIN SODIUM 40 MG/0.4 ML SYRINGE SUBQ (12:53)
[2022-09-16] MEDS: FOLIC ACID 1 MG TABLET PO (12:53)
[2022-09-16] MEDS: MULTIVITAMIN TABLET 400 TAB PO (12:54)
--- NOTE | 2022-09-16 13:35 | CM.NOTE ---
Rounds made with Dr. Muniz, no discharge today. Pt in agreement for skilled therapy at discharge.
[2022-09-16] MEDS: ROPINIROLE HCL 1 MG TABLET 3 MG PO ×2 (14:01→21:11)
--- NOTE | 2022-09-16 14:56 | CM.NOTE ---
Important Message From Medicare discussed with pt, pt verbalizes understanding and signs paper. Original given to pt and copy placed on pt's chart.
--- NOTE | 2022-09-16 14:56 | SWNOTE1 ---
RAYMOND checked back in and pt's aunt is not in room yet. He stated he talked to her not too long ago and she should be in soon. RAYMOND asked if he had made a decision on SNF for rehab and he had not. RAYMOND did address pt's drinking whiskey. He stated he has been drinking for 4 years now, ever since he lost his mother. He is not sure how much as it depends on what he has at home and what he can afford. Pt does not plan on stopping, he stated he does not have much support. Pt is not interested in alcohol rehab at this time or resources. RAYMOND called his aunt that is listed, no answer, voicemail was pt's voice.
[2022-09-16] MEDS: PANTOPRAZOLE SODIUM 40 MG VIAL IV (15:19)
--- NOTE | 2022-09-16 16:30 | SWNOTE1 ---
SW was able to meet with pt's aunt in room. She is agreeable for pt to go to rehab, she is his only caregiver. She did voice he has been places and he has left AMA. They have decided [facility] first choice, [facility] as second choice, and [facility] as third choice.
--- NOTE | 2022-09-16 16:33 | SWNOTE1 ---
Referral sent to [facility].
[2022-09-16 16:35] LABS: Glucometer 482 mg/dL (74-106)
[2022-09-16] MEDS: CEFTRIAXONE 1,000 MG in 0.9 % SODIUM CHLORIDE 50 ML 100 MG IV (17:52)
[2022-09-16] MEDS: INSULIN DETEMIR 300 UNIT/3 ML INSULN.PEN 10 UNIT SUBQ (21:11)
[2022-09-16 21:20] LABS: Glucometer 550 mg/dL (74-106)
[2022-09-17] VITALS (17 sets, daily range): BP systolic 108–154; BP diastolic 70–87; PULSE 66–86; RESP 18–20; TEMP 36.5–37; O2SAT 96–98
[2022-09-17] MEDS: LORAZEPAM 1 MG TABLET PO ×6 (02:30→21:27)
[2022-09-17] MEDS: KETOROLAC TROMETHAMINE 30 MG/ML VIAL IVP ×2 (02:30→13:48)
[2022-09-17 04:44] LABS: Hematocrit 29.9 % (42.0-54.0); Hemoglobin 10.7 g/dL (14.0-18.0); Immature Granulocytes Abs Auto 0.04 10^3/uL (0.00-0.03); Immature Granulocytes Pct Auto 0.8 % (0.0-0.5); Lymphocytes Absolute Auto 0.5 10^3/uL (1.2-3.8); Lymphocytes Percent Auto 10.3 % (20.5-60.0); Mean Corpuscular HGB Conc 35.8 g/dL (29.9-35.2); Mean Corpuscular Volume 97.7 fL (80.0-94.0); Mean Platelet Volume 10.6 fL (9.5-13.5); Monocytes Absolute Auto 0.4 10^3/uL (0.3-0.8); Monocytes Percent Auto 8.6 % (1.7-12.0); Neutrophils Absolute Auto 3.9 10^3/uL (1.4-6.5); Neutrophils Percent Auto 80.3 % (43.0-75.0); Platelet Count 80 10^3/uL (150-450); Red Blood Count 3.06 10^6/uL (4.70-6.10); Red Cell Distribution Width 12.2 % (11.0-15.0); White Blood Count 4.9 10^3/uL (4.0-11.0)
[2022-09-17 05:04] LABS: Alanine Aminotransferase 43 U/L (16-63); Albumin Globulin Ratio 0.6; Albumin Level 2.8 g/dL (3.4-5.0); Alkaline Phosphatase 98 U/L (46-116); Anion Gap 18.8; Aspartate Amino Transferase 62 U/L (15-37); BUN Creatinine Ratio 15.5; Bilirubin Total 0.6 mg/dL (0.2-1.0); Calcium 8.8 mg/dL (8.5-10.1); Carbon Dioxide 17.8 mmol/L (21.0-32.0); Chloride 100 mmol/L (98-107); Estimated GFR (African America >60 (>=60); Estimated GFR (Non-African Ame >60 (>=60); Globulin 4.4 g/dL; Glucose 421 mg/dL (74-106); Magnesium 1.6 mg/dL (1.8-2.4); Potassium 3.6 mmol/L (3.5-5.1); Sodium 133 mmol/L (136-145); Total Protein 7.2 g/dL (6.4-8.2)
[2022-09-17 05:07] LABS: HBsAg Screen Negative (Negative); HCV Ab Non Reactive (Non Reactive); Hep A Ab, IgM Negative (Negative); Hep B Core Ab, IgM Negative (Negative)
[2022-09-17] MEDS: ROPINIROLE HCL 1 MG TABLET 3 MG PO ×3 (05:51→21:27)
[2022-09-17] MEDS: METHYLPREDNISOLONE SOD SUCC PF 125 MG/2 ML VIAL IVP ×2 (05:51→18:15)
[2022-09-17] MEDS: 0.9 % SODIUM CHLORIDE 1,000 ML 100 ML IV ×2 (06:52→17:55)
[2022-09-17 08:07] LABS: Glucometer 405 mg/dL (74-106)
--- NOTE | 2022-09-17 08:59 | PM.PN ---
Progress Note: Subjective Subjective Interval history: patient is a 57-year-old male with past medical history of alcoholism he drinks approximately 1 gallon of whiskey every 2-3 days. He presented to the Emergency Room after calling EMS because he had general weakness and his bilateral lower extremities and inhibited him to walk. Original workup was a CT of the back which then proceeded to an MRI of the back which showed some degenerative changes and some disc disease but no cauda equina or any surgical emergency. Patient has tried to stop drinking before and has had seizure withdrawals before. He does not anticipate or want to quit alcohol at this time but he is very weak so he is forced to be in the hospital. He does live at home alone and otherwise is able to continue on with his quality of life. Today he developed a fever and sepsis current protocol was initiated including viral cultures, lactate, urine and blood cultures. Patient was admitted because of the weakness for PTOT evaluation and we will do scheduled Ativan as well as withdrawal precautions. patient feels slight improvement this morning. No new complaints today. Exam Narrative Exam Narrative: General: Patient is alert, and oriented to person, place and time with normal affect, proper hygiene Skin: no visible rashes, or ulcers Head: atraumatic, acephalic Eyes: PERRLA, no nystagmus present, conjunctiva clear, no scleral icterus Neck: no masses palpated, normal thyroid, no JVD or audible carotid bruits Heart: Normal rate and rhythm, no murmurs/rubs/gallops Lungs: no audible wheezes, crackles and normal breath sounds all lung galindo Abdomen: Normal audible bowel sounds, no distension, enlarged liver Musculoskeletal: no swelling bilateral lower extremities, weakness noted 4/5 in bilateral lower ext Vascular: Normal carotid, radial, femoral, posterior tibial, and dorsalis pedis pulses Lymph: no supraclavicular, axillary, or anterior/posterior cervical adenopathy Neuro: CN II-X grossly intact, normal sensation upper and lower extremities Constitutional Vital Signs, click to edit/add: Last Vital Signs Temp 97.7 F 09/17/22 05:57 Pulse 77 09/17/22 08:06 Resp 20 09/17/22 05:57 BP 133/85 H 09/17/22 05:57 Pulse Ox 97 09/17/22 05:57 O2 Del Method Room Air 09/17/22 05:57 Progress Note: Objective Labs Labs: Short CBC 09/17/22 Range/Units 04:35 WBC 4.9 (4.0-11.0) 10^3/uL Hgb 10.7 L (14.0-18.0) g/dL Hct 29.9 L (42.0-54.0) % Plt Count 80 L (150-450) 10^3/uL BMP 09/17/22 04:35 Sodium 133 L Potassium 3.6 Chloride 100 Carbon Dioxide 17.8 L BUN 17.0 Creatinine 1.10 Glucose 421 H Calcium 8.8 Liver Function 09/17/22 Range/Units 04:35 Total Bilirubin 0.6 (0.2-1.0) mg/dL AST 62 H (15-37) U/L ALT 43 (16-63) U/L Alkaline Phosphatase 98 (46-116) U/L Albumin 2.8 L (3.4-5.0) g/dL Progress Note: A&P Assessment and Plan (1) UTI (urinary tract infection): (2) Sepsis: (3) Acute hypokalemia: (4) Hypomagnesemia: (5) Alcohol abuse: (6) Generalized weakness: (7) Elevated LFTs: Plan (1) UTI (urinary tract infection): ?Assessment and Plan: fever, elevated white count, on rocephin and levaquin, due to positive blood culture for K. Pneumonia and enterobacter. continue to monitor cbc (2) Sepsis: ?Assessment and Plan: Viral cultures negative but positive blood culture. fever resolved. sepsis resolved. (3) Acute hypokalemia: ?Assessment and Plan: will replace potassium by mouth and IV (4) Hypomagnesemia: ?Assessment and Plan: to replace magnesium (5) Alcohol abuse: ?Assessment and Plan: no desire to quit but will replace on withdrawal scores and scheduled Ativan for seizure precautions, thiamine folic acid (6) Generalized weakness: ?Assessment and Plan: could be related to the degenerative joint disease and disc disease of his back could also be a vitamin deficiency PT OT evaluation continue to replace electrolytes or infection related; improving, getting up with pt/ot (7) Elevated LFTs: ?Assessment and Plan: cute hepatitis panel pending and liver ultrasound showed no biliary dilation, hepatic steatosis Plan patient is a full code Lovenox for deep vein thrombosis prophylaxis Patient is admitted to inpatient status is expected to stay more than two midnights with worsening condition
[2022-09-17] MEDS: PREGABALIN 75 MG CAPSULE 150 MG PO ×2 (09:48→21:27)
[2022-09-17] MEDS: SPIRONOLACTONE 25 MG TABLET PO (09:48)
[2022-09-17] MEDS: LEVOTHYROXINE SODIUM 75 MCG TABLET 150 MCG PO (09:48)
[2022-09-17] MEDS: INSULIN ASPART 300 UNIT/3 ML PEN SUBQ ×4 (09:49→21:30)
[2022-09-17] MEDS: INSULIN DETEMIR 300 UNIT/3 ML INSULN.PEN 10 UNIT SUBQ (09:49)
--- NOTE | 2022-09-17 09:50 | SWNOTE1 ---
SW received call from Tari at [facility] and they are NOT able to accept due to pt's drinking. RAYMOND sent referral to second choice which is [facility].
[2022-09-17 11:19] LABS: Glucometer 401 mg/dL (74-106)
[2022-09-17] MEDS: LEVOFLOXACIN IN DEXTROSE 5 % 500 MG/100 ML PIGGYBACK 100 MG IV (11:22)
--- NOTE | 2022-09-17 11:38 | REH.PTDLY ---
Physical Therapy Daily Note PT Daily Note/Assess Start: 09/16/22 11:06 Freq: Status: Active Protocol: Document 09/17/22 09:58 KAYLEE (Rec: 09/17/22 11:38 MATHIEULIZ [id number]) Physical Therapy Daily Note/Assessment Time In 09:30 Time Out 09:57 Pain N/A Pain N/A Subjective OT in room upon arrival. Pt is going to ambulate into restroom. Therapeutic Activity Minutes (minutes) 12 Therapeutic Activity Units 1 Therapeutic Activity Comments Pt requires Min-Mod A x2 with sit to stand transfers. Gait training with RW into restroom 20 feet needing Mod A x2 at times due to knees randomly buckling and pt being unsteady with gait. Several verbal cues needed for directional changes as well. Once sitting safely in bathroom OT works with pt on self care. Gait over to chair another 20 feet with RW Min Ax1-2 at times. Pt up in chair with chair alarm on and nursing in room upon exit. Total Therapy Minutes 12 Total Physical Therapy Units 1 Daily Note Summary Progressed with gait training today, pt unsafe with gait and requires 2 assist. Pt will need SNF for safety as pt cannot return home alone as he is a high fall risk.
--- NOTE | 2022-09-17 11:50 | CM.NOTE ---
Rounds made with Dr. Muniz, no discharge today. Pt agrees to have skilled therapy at discharge. SW working with pt to find a facility at discharge.
--- NOTE | 2022-09-17 12:04 | SWNOTE1 ---
SW received phone call from [facility] and they are able to accept pt. She stated the pt was at [facility] about 2 years ago and signed out AMA, but they are able to accept and try again. SW notified nursing and pt.
[2022-09-17] MEDS: ENOXAPARIN SODIUM 40 MG/0.4 ML SYRINGE SUBQ (13:47)
[2022-09-17] MEDS: MULTIVITAMIN TABLET 400 TAB PO (13:47)
[2022-09-17] MEDS: FOLIC ACID 1 MG TABLET PO (13:47)
[2022-09-17] MEDS: THIAMINE MONONITRATE (VIT B1) 100 MG TABLET PO (13:47)
[2022-09-17] MEDS: PANTOPRAZOLE SODIUM 40 MG VIAL IV (16:07)
[2022-09-17 16:09] LABS: Glucometer 451 mg/dL (74-106)
[2022-09-17] MEDS: CEFTRIAXONE 1,000 MG in 0.9 % SODIUM CHLORIDE 50 ML 100 MG IV (18:15)
[2022-09-17] MEDS: INSULIN DETEMIR 300 UNIT/3 ML INSULN.PEN 15 UNIT SUBQ (21:30)
[2022-09-17 21:57] LABS: Glucometer 437 mg/dL (74-106)
[2022-09-18] VITALS (18 sets, daily range): BP systolic 138–160; BP diastolic 86–96; PULSE 67–79; RESP 18; TEMP 36.4–37.1; O2SAT 75–98; BMI 38.3
[2022-09-18] MEDS: 0.9 % SODIUM CHLORIDE 1,000 ML 100 ML IV ×2 (02:55→16:37)
[2022-09-18 04:46] LABS: Basophils Percent Auto 0.2 % (0.2-2.0); Hematocrit 30.5 % (42.0-54.0); Immature Granulocytes Abs Auto 0.05 10^3/uL (0.00-0.03); Lymphocytes Absolute Auto 0.6 10^3/uL (1.2-3.8); Mean Corpuscular HGB Conc 36.1 g/dL (29.9-35.2); Mean Corpuscular Volume 97.1 fL (80.0-94.0); Mean Platelet Volume 10.5 fL (9.5-13.5); Monocytes Absolute Auto 0.3 10^3/uL (0.3-0.8); Monocytes Percent Auto 5.6 % (1.7-12.0); Neutrophils Absolute Auto 4.1 10^3/uL (1.4-6.5); Neutrophils Percent Auto 82.2 % (43.0-75.0); Platelet Count 96 10^3/uL (150-450); Red Blood Count 3.14 10^6/uL (4.70-6.10); Red Cell Distribution Width 12.3 % (11.0-15.0)
[2022-09-18 05:13] LABS: Alanine Aminotransferase 53 U/L (16-63); Albumin Globulin Ratio 0.6; Albumin Level 2.8 g/dL (3.4-5.0); Alkaline Phosphatase 104 U/L (46-116); Anion Gap 18.1; Aspartate Amino Transferase 67 U/L (15-37); BUN Creatinine Ratio 24.1; Bilirubin Total 0.8 mg/dL (0.2-1.0); Calcium 8.8 mg/dL (8.5-10.1); Carbon Dioxide 20.4 mmol/L (21.0-32.0); Chloride 98 mmol/L (98-107); Estimated GFR (African America >60 (>=60); Estimated GFR (Non-African Ame >60 (>=60); Globulin 4.6 g/dL; Glucose 364 mg/dL (74-106); Magnesium 1.7 mg/dL (1.8-2.4); Potassium 3.5 mmol/L (3.5-5.1); Sodium 133 mmol/L (136-145); Total Protein 7.4 g/dL (6.4-8.2)
[2022-09-18] MEDS: METHYLPREDNISOLONE SOD SUCC PF 125 MG/2 ML VIAL IVP ×2 (05:47→19:35)
[2022-09-18] MEDS: ROPINIROLE HCL 1 MG TABLET 3 MG PO ×3 (05:47→21:23)
[2022-09-18] MEDS: LORAZEPAM 1 MG TABLET PO ×2 (05:47→21:24)
[2022-09-18] MEDS: LEVOTHYROXINE SODIUM 75 MCG TABLET 150 MCG PO (05:47)
[2022-09-18 07:54] LABS: Glucometer 349 mg/dL (74-106)
[2022-09-18] MEDS: SPIRONOLACTONE 25 MG TABLET PO (08:50)
[2022-09-18] MEDS: PREGABALIN 75 MG CAPSULE 150 MG PO ×2 (08:50→21:24)
[2022-09-18] MEDS: KETOROLAC TROMETHAMINE 30 MG/ML VIAL IVP (08:50)
[2022-09-18] MEDS: INSULIN DETEMIR 300 UNIT/3 ML INSULN.PEN 15 UNIT SUBQ (08:53)
[2022-09-18] MEDS: INSULIN ASPART 300 UNIT/3 ML PEN SUBQ ×4 (08:53→21:29)
--- NOTE | 2022-09-18 09:16 | P.DS_ITS ---
DS: Providers Provider Date of admission: 09/15/22 12:05 Primary care physician: Non-Staff Physician, Consults: 09/15/22 12:34 Occupational Therapy Eval and Treat Routine Physical Therapy Eval and Treat Routine 09/15/22 15:14 Physical Therapy Eval and Treat Routine 09/16/22 09:25 Physical Therapy Eval and Treat Routine DS: Diagnosis Discharge Diagnosis (1) UTI (urinary tract infection): (2) Sepsis: (3) Acute hypokalemia: (4) Hypomagnesemia: (5) Alcohol abuse: (6) Generalized weakness: (7) Elevated LFTs: DS: Summary Time Spent with Patient Time attestation: Total time spent providing and/or coordinating discharge services: Exam Constitutional Vital Signs, click to edit/add: Last Vital Signs Temp 98.8 F 09/18/22 06:00 Pulse 73 09/18/22 08:03 Resp 18 09/18/22 06:00 BP 160/96 H 09/18/22 06:00 Pulse Ox 97 09/18/22 06:00 O2 Del Method Room Air 09/18/22 06:00 DS: Data Data Completed and Pending Labs on day of discharge: Labs from last 24 hours 09/18/22 09/18/22 09/17/22 07:26 04:35 21:32 WBC 5.0 RBC 3.14 L Hgb 11.0 L Hct 30.5 L MCV 97.1 H MCH 35.0 H MCHC 36.1 H RDW 12.3 Plt Count 96 L MPV 10.5 Neut % (Auto) 82.2 H Lymph % (Auto) 11.0 L [place] % (Auto) 5.6 Eos % (Auto) 0.0 L Baso % (Auto) 0.2 Neut # (Auto) 4.1 Lymph # (Auto) 0.6 L [place] # (Auto) 0.3 Eos # (Auto) 0.0 Baso # (Auto) 0.0 Abs Immat Gran (auto) 0.05 H Imm/Tot Granulo (auto) 1.0 H Sodium 133 L Potassium 3.5 Chloride 98 Carbon Dioxide 20.4 L Anion Gap 18.1 BUN 19.0 H Creatinine 0.79 Est GFR ( Amer) >60 Est GFR (Non-Af Amer) >60 BUN/Creatinine Ratio 24.1 Glucose 364 H Calcium 8.8 Magnesium 1.7 L Total Bilirubin 0.8 AST 67 H ALT 53 Alkaline Phosphatase 104 Total Protein 7.4 Albumin 2.8 L Globulin 4.6 Albumin/Globulin Ratio 0.6 POC Glucose 349 H 437 H 09/17/22 09/17/22 16:08 11:17 WBC RBC Hgb Hct MCV MCH MCHC RDW Plt Count MPV Neut % (Auto) Lymph % (Auto) [place] % (Auto) Eos % (Auto) Baso % (Auto) Neut # (Auto) Lymph # (Auto) [place] # (Auto) Eos # (Auto) Baso # (Auto) Abs Immat Gran (auto) Imm/Tot Granulo (auto) Sodium Potassium Chloride Carbon Dioxide Anion Gap BUN Creatinine Est GFR ( Amer) Est GFR (Non-Af Amer) BUN/Creatinine Ratio Glucose Calcium Magnesium Total Bilirubin AST ALT Alkaline Phosphatase Total Protein Albumin Globulin Albumin/Globulin Ratio POC Glucose 451 H 401 H Preliminary micro results at discharge 09/15/22 15:53 - Preliminary Blood Klebsiella pneumoniae 09/15/22 13:38 - Preliminary Blood Klebsiella pneumoniae Discharge Plan Discharge Condition: Good Discharge Medications: No Action ropinirole 3 mg tablet 3 mg PO TID Patient Comments: FILLED 07/10/22 #90/30 DAYS PER REFILL HX ibuprofen [IBU] 800 mg tablet 800 mg PO Q6H Patient Comments: LAST FILLED 08/30/22 FOR #30/7 DAYS pregabalin [Lyrica] 150 mg capsule 150 mg PO BID Patient Comments: HAS NOT FILLED SINCE 04/07/22 #60/30 DAYS insulin glargine [Lantus Solostar U-100 Insulin] subcut Patient Comments: LAST FILLED 03/30/22 FOR 30 DAY SUPPLY pantoprazole 40 mg tablet,delayed release (DR/EC) 40 mg PO DAILY Patient Comments: HAS NOT FILLED SINCE 02/19/2022 FOR 30 DAY SUPPLY spironolactone 25 mg tablet 25 mg PO DAILY Patient Comments: HAS NOT FILLED SINCE 02/18/2022 FOR 30 DAY SUPPLY metformin 500 mg tablet 500 mg PO BID Patient Comments: HAS NOT FILLED SINCE 11/14/2021 FOR #60/30 DAYS insulin lispro [Humalog KwikPen Insulin] 100 unit/mL insulin pen See Rx Instructions subcut USEASDIRECTD Rx Instructions: LAST FILLED 01/13/22 FOR 50 DAY SUPPLY levothyroxine 50 mcg capsule 50 mcg PO DAILY Rx Instructions: HAS NOT FILLED SINCE 04/07/2022 #30/30 DAYS Tax Investigator/Human Resources Office Assistant Instructions: Discharge to [facility].
[2022-09-18] MEDS: LEVOFLOXACIN IN DEXTROSE 5 % 500 MG/100 ML PIGGYBACK 100 MG IV (10:19)
--- NOTE | 2022-09-18 11:36 | CM.NOTE ---
Rounds made with Dr. Muniz. Increasing confusion noted. No plan for discharge today.
[2022-09-18 11:43] LABS: Glucometer 418 mg/dL (74-106)
--- NOTE | 2022-09-18 11:57 | SWNOTE1 ---
Pt is not ready for discharge today, SW to send updates to [facility].
--- NOTE | 2022-09-18 13:13 | PM.PN ---
Progress Note: Subjective Subjective Interval history: patient is a 57-year-old male with past medical history of alcoholism he drinks approximately 1 gallon of whiskey every 2-3 days. He presented to the Emergency Room after calling EMS because he had general weakness and his bilateral lower extremities and inhibited him to walk. Original workup was a CT of the back which then proceeded to an MRI of the back which showed some degenerative changes and some disc disease but no cauda equina or any surgical emergency. Patient has tried to stop drinking before and has had seizure withdrawals before. He does not anticipate or want to quit alcohol at this time but he is very weak so he is forced to be in the hospital. He does live at home alone and otherwise is able to continue on with his quality of life. Today he developed a fever and sepsis current protocol was initiated including viral cultures, lactate, urine and blood cultures. Patient was admitted because of the weakness for PTOT evaluation and we will do scheduled Ativan as well as withdrawal precautions. patient appears more groggy this morning, less alert and responsive to commands, morning ativan was held due to CIWA score of 12. Exam Narrative Exam Narrative: General: Patient is alert, but not oriented to person, place and time with normal affect, proper hygiene Skin: no visible rashes, or ulcers Head: atraumatic, acephalic Eyes: PERRLA, no nystagmus present, conjunctiva clear, no scleral icterus Neck: no masses palpated, normal thyroid, no JVD or audible carotid bruits Heart: Normal rate and rhythm, no murmurs/rubs/gallops Lungs: no audible wheezes, crackles and normal breath sounds all lung galindo Abdomen: Normal audible bowel sounds, no distension, enlarged liver Musculoskeletal: no swelling bilateral lower extremities, weakness noted 4/5 in bilateral lower ext Vascular: Normal carotid, radial, femoral, posterior tibial, and dorsalis pedis pulses Lymph: no supraclavicular, axillary, or anterior/posterior cervical adenopathy Neuro: CN II-X grossly intact, normal sensation upper and lower extremities Constitutional Vital Signs, click to edit/add: Last Vital Signs Temp 98.8 F 09/18/22 06:00 Pulse 69 09/18/22 11:54 Resp 18 09/18/22 06:00 BP 160/96 H 09/18/22 06:00 Pulse Ox 96 09/18/22 11:20 O2 Del Method Room Air 09/18/22 11:20 Progress Note: Objective Labs Labs: Short CBC 09/18/22 Range/Units 04:35 WBC 5.0 (4.0-11.0) 10^3/uL Hgb 11.0 L (14.0-18.0) g/dL Hct 30.5 L (42.0-54.0) % Plt Count 96 L (150-450) 10^3/uL BMP 09/18/22 04:35 Sodium 133 L Potassium 3.5 Chloride 98 Carbon Dioxide 20.4 L BUN 19.0 H Creatinine 0.79 Glucose 364 H Calcium 8.8 Liver Function 09/18/22 Range/Units 04:35 Total Bilirubin 0.8 (0.2-1.0) mg/dL AST 67 H (15-37) U/L ALT 53 (16-63) U/L Alkaline Phosphatase 104 (46-116) U/L Albumin 2.8 L (3.4-5.0) g/dL Progress Note: A&P Assessment and Plan (1) UTI (urinary tract infection): (2) Sepsis: (3) Acute hypokalemia: (4) Hypomagnesemia: (5) Alcohol abuse: (6) Generalized weakness: (7) Elevated LFTs: Plan (1) UTI (urinary tract infection): ?Assessment and Plan: fever, elevated white count, on rocephin and levaquin, due to positive blood culture for K. Pneumonia and enterobacter. continue to monitor cbc (2) Sepsis: ?Assessment and Plan: Viral cultures negative but positive blood culture. fever resolved. sepsis resolved. (3) Acute hypokalemia: ?Assessment and Plan: will replace potassium by mouth and IV (4) Hypomagnesemia: ?Assessment and Plan: to replace magnesium daily (5) Alcohol abuse: ?Assessment and Plan: no desire to quit but will replace on withdrawal scores and scheduled Ativan for seizure precautions, thiamine folic acid, reaching 72 hours concern he may now be withdrawaling, history of seizures, precautions in place (6) Generalized weakness: ?Assessment and Plan: could be related to the degenerative joint disease and disc disease of his back could also be a vitamin deficiency PT OT evaluation continue to replace electrolytes or infection related; improving, getting up with pt/ot (7) Elevated LFTs: ?Assessment and Plan: cute hepatitis panel pending and liver ultrasound showed no biliary dilation, hepatic steatosis Plan patient is a full code Lovenox for deep vein thrombosis prophylaxis Patient is admitted to inpatient status is expected to stay more than two midnights with worsening condition
[2022-09-18] MEDS: THIAMINE MONONITRATE (VIT B1) 100 MG TABLET PO (14:04)
[2022-09-18] MEDS: ENOXAPARIN SODIUM 40 MG/0.4 ML SYRINGE SUBQ (14:04)
[2022-09-18] MEDS: MULTIVITAMIN TABLET 400 TAB PO (14:04)
[2022-09-18] MEDS: FOLIC ACID 1 MG TABLET PO (14:04)
--- NOTE | 2022-09-18 15:25 | SWNOTE1 ---
SW sent updates to [facility].
--- NOTE | 2022-09-18 15:26 | REH.PTDLY ---
Physical Therapy Daily Note PT Daily Note/Assess Start: 09/16/22 11:06 Freq: Status: Active Protocol: Document 09/18/22 15:25 KAYLEE (Rec: 09/18/22 15:26 KAYLEE [id number]) Visit Not Completed Visit Not Completed Due to: Nursing request to hold Other Reason Visit Not Completed Nursing reports to hold as pt has increased confusion today, resting right now. Physical Therapy Daily Note/Assessment Time In 15:20 Time Out 15:22
[2022-09-18 16:05] LABS: Glucometer 518 mg/dL (74-106)
[2022-09-18] MEDS: PANTOPRAZOLE SODIUM 40 MG VIAL IV (16:37)
[2022-09-18] MEDS: CEFTRIAXONE 1,000 MG in 0.9 % SODIUM CHLORIDE 50 ML 100 MG IV (19:35)
[2022-09-18] MEDS: INSULIN DETEMIR 300 UNIT/3 ML INSULN.PEN 20 UNIT SUBQ (21:28)
[2022-09-18 21:45] LABS: Glucometer 514 mg/dL (74-106)
[2022-09-19] VITALS (9 sets, daily range): BP systolic 155; BP diastolic 95; PULSE 72–79; RESP 20; TEMP 36.4; O2SAT 98
[2022-09-19] MEDS: 0.9 % SODIUM CHLORIDE 1,000 ML 100 ML IV (02:38)
[2022-09-19 05:29] LABS: Basophils Percent Auto 0.5 % (0.2-2.0); Hematocrit 31.4 % (42.0-54.0); Hemoglobin 11.5 g/dL (14.0-18.0); Immature Granulocytes Abs Auto 0.22 10^3/uL (0.00-0.03); Immature Granulocytes Pct Auto 2.5 % (0.0-0.5); Lymphocytes Percent Auto 11.3 % (20.5-60.0); Mean Corpuscular HGB Conc 36.6 g/dL (29.9-35.2); Mean Corpuscular Hemoglobin 35.1 pg (25.9-34.0); Mean Corpuscular Volume 95.7 fL (80.0-94.0); Mean Platelet Volume 9.9 fL (9.5-13.5); Monocytes Absolute Auto 0.5 10^3/uL (0.3-0.8); Monocytes Percent Auto 5.6 % (1.7-12.0); Neutrophils Percent Auto 80.1 % (43.0-75.0); Platelet Count 124 10^3/uL (150-450); Red Blood Count 3.28 10^6/uL (4.70-6.10); Red Cell Distribution Width 12.1 % (11.0-15.0); White Blood Count 8.7 10^3/uL (4.0-11.0)
[2022-09-19] MEDS: ROPINIROLE HCL 1 MG TABLET 3 MG PO ×2 (05:33→13:02)
[2022-09-19] MEDS: METHYLPREDNISOLONE SOD SUCC PF 125 MG/2 ML VIAL IVP (05:34)
[2022-09-19] MEDS: LEVOTHYROXINE SODIUM 75 MCG TABLET 150 MCG PO (05:34)
[2022-09-19 05:48] LABS: Alanine Aminotransferase 62 U/L (16-63); Albumin Globulin Ratio 0.7; Albumin Level 2.8 g/dL (3.4-5.0); Alkaline Phosphatase 102 U/L (46-116); Aspartate Amino Transferase 57 U/L (15-37); BUN Creatinine Ratio 25.4; Bilirubin Total 0.7 mg/dL (0.2-1.0); Calcium 8.7 mg/dL (8.5-10.1); Carbon Dioxide 21.5 mmol/L (21.0-32.0); Chloride 98 mmol/L (98-107); Estimated GFR (African America >60 (>=60); Estimated GFR (Non-African Ame >60 (>=60); Globulin 4.3 g/dL; Glucose 358 mg/dL (74-106); Potassium 3.5 mmol/L (3.5-5.1); Sodium 132 mmol/L (136-145); Total Protein 7.1 g/dL (6.4-8.2)
[2022-09-19] MEDS: INSULIN DETEMIR 300 UNIT/3 ML INSULN.PEN 20 UNIT SUBQ (08:27)
[2022-09-19] MEDS: INSULIN ASPART 300 UNIT/3 ML PEN SUBQ ×2 (08:28→13:02)
[2022-09-19] MEDS: KETOROLAC TROMETHAMINE 30 MG/ML VIAL IVP (08:33)
--- NOTE | 2022-09-19 09:55 | PM.DS1 ---
DS: Providers Provider Date of admission: 09/15/22 12:05 Primary care physician: Non-Staff Physician, Admitting clinician: Isabelle Muniz Consults: 09/15/22 12:34 Occupational Therapy Eval and Treat Routine Physical Therapy Eval and Treat Routine 09/15/22 15:14 Physical Therapy Eval and Treat Routine 09/16/22 09:25 Physical Therapy Eval and Treat Routine Attending physician on discharge: Isabelle Muniz DS: Diagnosis Discharge Diagnosis (1) UTI (urinary tract infection): (2) Sepsis: (3) Acute hypokalemia: (4) Hypomagnesemia: (5) Alcohol abuse: (6) Generalized weakness: (7) Elevated LFTs: Plan (1) UTI (urinary tract infection): ?Assessment and Plan: fever, elevated white count, on rocephin and levaquin, due to positive blood culture for K. Pneumonia and enterobacter. C&S sensitive to levaquin. Will treat with levaquin 500mg daily for 10 days. (2) Sepsis: ?Assessment and Plan: Viral cultures negative but positive blood culture. fever resolved. sepsis resolved. (3) Acute hypokalemia: ?Assessment and Plan: will replace potassium by mouth and IV, oral potassium on discharge (4) Hypomagnesemia: ?Assessment and Plan: to replace magnesium daily (5) Alcohol abuse: ?Assessment and Plan: no desire to quit but will replace on withdrawal scores and scheduled Ativan for seizure precautions, thiamine folic acid, multivitamins and PRN ATivan at discharge (6) Generalized weakness: ?Assessment and Plan: could be related to the degenerative joint disease and disc disease of his back could also be a vitamin deficiency PT OT evaluation continue to replace electrolytes or infection related; improving, getting up with pt/ot going for inpatient rehab (7) Elevated LFTs: ?Assessment and Plan: acute hepatitis panel pending and liver ultrasound showed no biliary dilation, hepatic steatosis, needs to stop drinking DS: Summary Hospital Course Hospital Course: patient found to have Klebsiella UTI and bacteremia, improved on levaquin. Will continue this. Improved with some PT/OT, going for inpatient rehab. No withdrawal seizures but provided facility with PRN ATivan. Recommended he quit, maybe AA as outpatient. electrolytes replaced. MOnitor sugars closely and continue to increase lantus. He wasn't taking any home medications including insulin. Status at Discharge Functional status at discharge: uses cane/walker Overall status at discharge: patient is progressing back to baseline Time Spent with Patient Time attestation: Total time spent providing and/or coordinating discharge services: Exam Narrative Exam Narrative: General: Patient is alert, but not oriented to person, place and time with normal affect, proper hygiene Skin: no visible rashes, or ulcers Head: atraumatic, acephalic Eyes: PERRLA, no nystagmus present, conjunctiva clear, no scleral icterus Neck: no masses palpated, normal thyroid, no JVD or audible carotid bruits Heart: Normal rate and rhythm, no murmurs/rubs/gallops Lungs: no audible wheezes, crackles and normal breath sounds all lung galindo Abdomen: Normal audible bowel sounds, no distension, enlarged liver Musculoskeletal: no swelling bilateral lower extremities, weakness noted 4/5 in bilateral lower ext Vascular: Normal carotid, radial, femoral, posterior tibial, and dorsalis pedis pulses Lymph: no supraclavicular, axillary, or anterior/posterior cervical adenopathy Neuro: CN II-X grossly intact, normal sensation upper and lower extremities Constitutional Vital Signs, click to edit/add: Last Vital Signs Temp 97.5 F L 09/19/22 05:39 Pulse 77 09/19/22 08:13 Resp 20 09/19/22 05:39 BP 155/95 H 09/19/22 05:39 Pulse Ox 98 09/19/22 05:39 O2 Del Method Room Air 09/19/22 05:39 DS: Data Data Completed and Pending Labs on day of discharge: Labs from last 24 hours 09/19/22 09/18/22 09/18/22 05:14 21:26 16:03 WBC 8.7 RBC 3.28 L Hgb 11.5 L Hct 31.4 L MCV 95.7 H MCH 35.1 H MCHC 36.6 H RDW 12.1 Plt Count 124 L MPV 9.9 Neut % (Auto) 80.1 H Lymph % (Auto) 11.3 L [place] % (Auto) 5.6 Eos % (Auto) 0.0 L Baso % (Auto) 0.5 Neut # (Auto) 7.0 H Lymph # (Auto) 1.0 L [place] # (Auto) 0.5 Eos # (Auto) 0.0 Baso # (Auto) 0.0 Abs Immat Gran (auto) 0.22 H Imm/Tot Granulo (auto) 2.5 H Sodium 132 L Potassium 3.5 Chloride 98 Carbon Dioxide 21.5 Anion Gap 16.0 BUN 17.0 Creatinine 0.67 L Est GFR ( Amer) >60 Est GFR (Non-Af Amer) >60 BUN/Creatinine Ratio 25.4 Glucose 358 H Calcium 8.7 Total Bilirubin 0.7 AST 57 H ALT 62 Alkaline Phosphatase 102 Total Protein 7.1 Albumin 2.8 L Globulin 4.3 Albumin/Globulin Ratio 0.7 POC Glucose 514 H* 518 H* 09/18/22 11:32 WBC RBC Hgb Hct MCV MCH MCHC RDW Plt Count MPV Neut % (Auto) Lymph % (Auto) [place] % (Auto) Eos % (Auto) Baso % (Auto) Neut # (Auto) Lymph # (Auto) [place] # (Auto) Eos # (Auto) Baso # (Auto) Abs Immat Gran (auto) Imm/Tot Granulo (auto) Sodium Potassium Chloride Carbon Dioxide Anion Gap BUN Creatinine Est GFR ( Amer) Est GFR (Non-Af Amer) BUN/Creatinine Ratio Glucose Calcium Total Bilirubin AST ALT Alkaline Phosphatase Total Protein Albumin Globulin Albumin/Globulin Ratio POC Glucose 418 H Preliminary micro results at discharge 09/15/22 15:53 - Preliminary Blood Klebsiella pneumoniae Discharge Plan Discharge Disposition: Xfer SNF Condition: Good Discharge Medications: New folic acid 1 mg Tablet 1 mg PO QD 30 Days Qty: 30 0RF thiamine mononitrate (vit B1) 100 mg Tablet 100 mg PO QD 30 Days Qty: 30 0RF multivitamin with folic acid [Tab-A-Carin] 400 mcg Tablet 1 tab PO QD 30 Days Qty: 30 0RF lorazepam [Ativan] 0.5 mg tablet 0.5 mg PO Q8H PRN (Reason: alcohol withdrawal) 7 Days Qty: 20 0RF levofloxacin 500 mg tablet 500 mg PO DAILY 10 Days Qty: 10 0RF insulin glargine [Lantus Solostar U-100 Insulin] 100 unit/mL (3 mL) insulin pen 20 unit subcut BID Qty: 15 0RF Continued ropinirole 3 mg tablet 3 mg PO TID Patient Comments: FILLED 07/10/22 #90/30 DAYS PER REFILL HX ibuprofen [IBU] 800 mg tablet 800 mg PO Q6H Patient Comments: LAST FILLED 08/30/22 FOR #30/7 DAYS pregabalin [Lyrica] 150 mg capsule 150 mg PO BID Patient Comments: HAS NOT FILLED SINCE 04/07/22 #60/30 DAYS pantoprazole 40 mg tablet,delayed release (DR/EC) 40 mg PO DAILY Patient Comments: HAS NOT FILLED SINCE 02/19/2022 FOR 30 DAY SUPPLY spironolactone 25 mg tablet 25 mg PO DAILY Patient Comments: HAS NOT FILLED SINCE 02/18/2022 FOR 30 DAY SUPPLY metformin 500 mg tablet 500 mg PO BID Patient Comments: HAS NOT FILLED SINCE 11/14/2021 FOR #60/30 DAYS insulin lispro [Humalog KwikPen Insulin] 100 unit/mL insulin pen See Rx Instructions subcut USEASDIRECTD Rx Instructions: LAST FILLED 01/13/22 FOR 50 DAY SUPPLY levothyroxine 50 mcg capsule 50 mcg PO DAILY Rx Instructions: HAS NOT FILLED SINCE 04/07/2022 #30/30 DAYS Discontinued insulin glargine [Lantus Solostar U-100 Insulin] subcut Patient Comments: LAST FILLED 03/30/22 FOR 30 DAY SUPPLY Barrel Cooper/Ocean Fishing Guide Instructions: Discharge to [facility]. Forms: Portal Instructions Discharge Date/Time: 09/19/22 13:34 Discharge Location: [facility] Discharge location: recheck cmp, magnesium in 1 week. report called to [facility]
[2022-09-19] MEDS: PREGABALIN 75 MG CAPSULE 150 MG PO (10:41)
[2022-09-19] MEDS: LEVOFLOXACIN IN DEXTROSE 5 % 500 MG/100 ML PIGGYBACK 100 MG IV (10:41)
[2022-09-19] MEDS: SPIRONOLACTONE 25 MG TABLET PO (10:42)
[2022-09-19 11:49] LABS: Glucometer 439 mg/dL (74-106)
--- NOTE | 2022-09-19 11:56 | SWNOTE1 ---
Pt is ready for discharged. RAYMOND sent over finalized med rec to [facility]. RAYMOND completed [facility] and updated packet. RAYMOND set up trips for 1-1:30 and notified nursing, [facility], and pt of time. RAYMOND left message for pt's aunt as well.
[2022-09-19] MEDS: FOLIC ACID 1 MG TABLET PO (13:02)
[2022-09-19] MEDS: MULTIVITAMIN TABLET 400 TAB PO (13:02)
[2022-09-19] MEDS: THIAMINE MONONITRATE (VIT B1) 100 MG TABLET PO (13:02)
--- NOTE | 2022-09-19 13:50 | CM.NOTE ---
Rounds made with Dr. Muniz. Plan for discharge today.
== END 2022-09-19 13:34 | DRG 872 ==
LOC: ER 09-15 06:53 → MS 09-15 19:32
PROVIDERS: Emergency Medicine; Admitting Provider Family Medicine; Emergency Provider Emergency Medicine; Visit Provider Family Medicine
DX: A41.81 Sepsis due to Enterococcus (principal); N39.0 Urinary tract infection, site not specified; A41.59 Other Gram-negative sepsis; B96.1 Klebsiella pneumoniae [K. pneumoniae] as the cause of diseases classified elsewhere; E87.6 Hypokalemia; E83.42 Hypomagnesemia; R53.1 Weakness; M19.90 Unspecified osteoarthritis, unspecified site; R79.89 Other specified abnormal findings of blood chemistry; F10.20 Alcohol dependence, uncomplicated; M51.36 Other intervertebral disc degeneration, lumbar region; E56.9 Vitamin deficiency, unspecified; F17.210 Nicotine dependence, cigarettes, uncomplicated; Z79.4 Long term (current) use of insulin; Z79.899 Other long term (current) drug therapy; Z79.1 Long term (current) use of non-steroidal anti-inflammatories (NSAID); Z79.84 Long term (current) use of oral hypoglycemic drugs; Z79.890 Hormone replacement therapy; Y90.6 Blood alcohol level of 120-199 mg/100 ml
CPT/HCPCS: 0202U; 36415; 70030; 72131; 72148; 76705; 80053; 80061; 80074; 80320; 82607; 82948; 83036; 83605; 83735; 84100; 84443; 85025; 87040; 87086; 87150; 87186; 94761; 96365; 96366; 96367; 96372; 96375; 96376; 97161; 97165; 97530; 97535; 99285; J2020; J2930